=== PATIENT | male | born 1945 | race Caucasian/White ===

== ENCOUNTER 2016-09-28 16:59 | Emergency (ER) | payer OTHER ==
[2016-09-28] MEDS ORDERED: IBUPROFEN 600 MG TABLET (FP) PO ONE (17:12)
[2016-09-28 17:14] VITALS: BP 156/78; PULSE 84; TEMP 97.5; BMI 32.3
--- NOTE | 2016-09-28 17:15 | PDOC ---
Rapid Medical Evaluation Chief Complaint: Pain, Acute Time Seen by Provider: 09/28/16 17:09 Medical Evaluation: Allergies Allergy/AdvReac Type Severity Reaction Status Date / Time No Known Allergies Allergy Verified 09/28/16 17:11 09/28/16 17:12 I have performed a brief in-person evaluation of this patient. The patient presents with a chief complaint of: R flank pain, constant x 2 days , Pertinent physical exam findings:no cvat b/l I have ordered the following: cbc, cmp, ua The patient will proceed to the ED for further evaluation.
[2016-09-28 17:56] LABS: BASOPHIL 0.3 % (0-2.0); EOSINOPHIL 1.2 % (0-4.5); MCH 30.3 pg (25.7-33.7); MCHC 33.2 g/dl (32.0-35.9); MEAN CELL VOLUME 91.1 fl (80-96); MEAN PLT VOLUME 10.5 fl (7.5-11.1); NEUTROPHILS 68.6 % (42.8-82.8); PLATELET COUNT 173 K/MM3 (134-434); RDW 14.2 % (11.9-15.9); WHITE BLOOD COUNT 9.7 K/mm3 (4.0-10.0)
--- NOTE | 2016-09-28 18:03 | PDOC ---
[id number] Source: Patient Exam Limitations: No Limitations - History of Present Illness Initial Comments: 09/28/16 18:18 My Chief Complaint: Right sided flank pain intermittent since yesterday History of present illness: Patient is a 71-year-old male with history of [place] 2006 with stent placement, no hyperlipidemia, [id number] diabetes, hypertension, umbilical hernia repair with recurrent herniation. Patient reports that 2 days ago he felt mid upper abdominal pain that radiated to b/l abdomen that was constant resolved and pain was felt and right flank area and is intermittent. Patient reports the right flank pain is worse when getting up from a seated position or sitting down. Patient denies any nausea, vomiting, any shortness of breath, any diaphoresis, or any fever, diarrhea or constipation. Patient denies any belching. He denies doing any heavy lifting or any strenuous activities. Patient is responsive and pleasant making jokes in exam room. He denies any urinary symptoms. 09/28/16 18:20 09/28/16 18:24 09/28/16 18:27 09/28/16 20:02 Timing/Duration: intermittent (rt. lower quadrant pain since yesterday ) Severity: moderate Modifying Factors: improves with: immobilization Associated Symptoms: reports: denies symptoms. denies: chest pain, cough, diaphoresis, fever/chills, headaches, loss of appetite, malaise, nausea/vomiting , rash, seizure, shortness of breath, syncope, weakness <Monik Noel - Last Filed: 10/02/16 17:24> - General Chief Complaint: Pain Stated Complaint: PAIN ON SIDE Time Seen by Provider: 09/28/16 17:09 Past History <Pavithra Augustin - Last Filed: 09/28/16 20:58> - Past Medical History Cardiac Disorders: Yes (CARDIAC STENT) Diabetes: Yes HTN: Yes Hypercholesterolemia: Yes - Surgical History Cardiac Surgery: Yes (CARDIAC STENT) - Immunization History Td Vaccination: Yes (05/04/12) - Psycho/Social/Smoking Cessation Hx Anxiety: No Suicidal Ideation: No Smoking Status: Yes Smoking History: Former smoker Years of Tobacco Use: 20 Have you smoked in the past 12 months: No Number of Cigarettes Smoked Daily: 30 Information on smoking cessation initiated: No <Monik Noel - Last Filed: 10/02/16 17:24> - Past Medical History Allergies/Adverse Reactions: Allergies Allergy/AdvReac Type Severity Reaction Status Date / Time No Known Allergies Allergy Verified 09/28/16 17:11 Home Medications: Ambulatory Orders Amox-Tr/K Cl [Augmentin 875Mg Tablet] 1 tab PO BID #20 tablet 05/04/12 Aspirin [ASA] 81 mg PO DAILY 05/04/12 Losartan Potassium 25 mg PO DAILY 05/04/12 Metformin HCl [Riomet] 500 mg PO BID 05/04/12 Metoprolol Tartrate [Lopressor] 25 mg PO DAILY 05/04/12 Rosuvastatin Calcium [Crestor] 40 mg PO DAILY 05/04/12 Sulfamethoxazole/Trimethoprim [Bactrim *Ds*] 2 tab PO BID #28 tablet 05/11/12 Review of Systems - Review of Systems Able to Perform ROS?: Yes Constitutional: No: Symptoms Reported HEENTM: No: Symptoms Reported Respiratory: No: Symptoms reported Cardiac (ROS): No: Symptoms Reported ABD/GI: Yes: Other (rt. flank pain ). No: Blood Streaked Bowels, Constipated, Diarrhea, Difficulty Swallowing, Nausea, Poor Appetite, Poor Fluid Intake, Rectal Bleeding, Vomiting, Indigestion, Abdominal cramping, Tarry Stools : No: Symptoms Reported Musculoskeletal: No: Symptoms Reported Integumentary: No: Symptoms Reported Neurological: No: Symptoms reported <Monik Noel - Last Filed: 10/02/16 17:24> *Physical Exam - Vital Signs Last Vital Signs Temp Pulse Resp BP Pulse Ox 97.5 F L 84 19 156/78 96 09/28/16 17:11 09/28/16 17:11 09/28/16 17:11 09/28/16 17:11 09/28/16 17:11 <Pavithra Augustin - Last Filed: 09/28/16 20:58> - Vital Signs Last Vital Signs Temp Pulse Resp BP Pulse Ox 97.5 F L 84 19 156/78 96 09/28/16 17:11 09/28/16 17:11 09/28/16 17:11 09/28/16 17:11 09/28/16 17:11 - Physical Exam Comments: 09/28/16 18:25 General Appearance: Yes: Appropriately Dressed Respiratory/Chest: positive: Lungs Clear, Normal Breath Sounds. negative: Chest Tender, Respiratory Distress Cardiovascular: positive: Regular Rhythm, Regular Rate, S1, S2 Gastrointestinal/Abdominal: positive: Normal Bowel Sounds, Soft, Tenderness (RLQ ), Other (rt. flank pain, negative PSOAS, negative Obturator, negative McBurney) . negative: Organomegaly, Increased Bowel Sounds, Decreased BS, Distended, Guarding, Rebound, Hernia, Hepatomegaly, Spleenomegaly Musculoskeletal: negative: CVA Tenderness, CVA Tenderness (R), CVA Tenderness (L ) Integumentary: positive: Normal Color Neurologic: positive: Alert, Normal Response, Responsive <Monik Noel - Last Filed: 10/02/16 17:24> ED Treatment Course - LABORATORY CBC & Chemistry Diagram: 09/28/16 17:50 09/28/16 17:50 - ADDITIONAL ORDERS Additional order review: Laboratory Results 09/28/16 09/28/16 09/28/16 18:20 17:50 17:12 Sodium 138 Potassium 4.3 Chloride 104 Carbon Dioxide 26 Anion Gap 8 BUN 17 Creatinine 1.1 Creat Clearance w eGFR > 60 Random Glucose 107 H Calcium 9.3 Total Bilirubin 0.6 AST 22 ALT 48 Alkaline Phosphatase 76 Total Protein 7.8 Albumin 4.1 Lipase Cancelled 378 Urine Color Yellow Urine Appearance Clear Urine pH 5.0 Ur Specific [place] 1.023 Urine Protein Negative Urine Glucose (UA) Negative Urine Ketones Negative Urine Blood Negative Urine Nitrite Negative Urine Bilirubin Negative Urine Urobilinogen Negative Ur Leukocyte Esterase Negative 09/28/16 17:50 RBC 4.74 MCV 91.1 MCHC 33.2 RDW 14.2 MPV 10.5 Neutrophils % 68.6 Lymphocytes % 20.4 Monocytes % 9.5 Eosinophils % 1.2 Basophils % 0.3 - Medications Given in the ED: ED Medications Discontinued Medications Generic Name Dose Route Start Last Admin Trade Name Freq PRN Reason Stop Dose Admin Ibuprofen 600 mg 09/28/16 17:12 09/28/16 17:17 Motrin - PO 09/28/16 17:13 600 mg ONCE ONE Administration <Pavithra Augustin - Last Filed: 09/28/16 20:58> - LABORATORY CBC & Chemistry Diagram: 09/28/16 17:50 09/28/16 17:50 - ADDITIONAL ORDERS Additional order review: 09/28/16 17:50 RBC 4.74 MCV 91.1 MCHC 33.2 RDW 14.2 MPV 10.5 Neutrophils % 68.6 Lymphocytes % 20.4 Monocytes % 9.5 Eosinophils % 1.2 Basophils % 0.3 - Medications Given in the ED: ED Medications Discontinued Medications Generic Name Dose Route Start Last Admin Trade Name Dionicio PRN Reason Stop Dose Admin Ibuprofen 600 mg 09/28/16 17:12 09/28/16 17:17 Motrin - PO 09/28/16 17:13 600 mg ONCE ONE Administration <Monik Noel - Last Filed: 10/02/16 17:24> Medical Decision Making - Medical Decision Making 09/28/16 20:59 Addendum added to patient's ultrasound which showed no signs of aortic aneurysm. Patient states feeling better after receiving Motrin. Patient will be discharged home to follow-up with his primary care physician. <Pavithra Augustin - Last Filed: 09/28/16 20:58> - Medical Decision Making 09/28/16 18:23 Patient is a 71-year-old male with history of [place] 2006, no hyperlipidemia, non- insulin-dependent diabetes, hypertension, umbilical hernia repair with recurrent herniation. Patient reports that 2 days ago he felt mid upper abdominal pain that radiated to b/l abdomen that was constant resolved and pain was felt and right flank area and is intermittent. Patient reports the right flank pain is worse when getting up from a seated position or sitting down. Patient denies any nausea, vomiting, any shortness of breath, any diaphoresis, or any fever, diarrhea or constipation. Patient denies any belching. He denies doing any heavy lifting or any strenuous activities. Patient is responsive and pleasant making jokes in exam room. He denies any urinary symptoms. Rt. Flank, RLQ tenderness r/o hydronephrosis r/o AAA PLAN: ua cmp cbc with diff lipase ultrasound abdomen liver versus hepatocellular disease please correlate with liver enzymes. No gallstones are and of the pancreas likely due to overlying bowel gas. Visualized portion on the proximal and distal abdominal aorta is within normal limits in size. Abdominal aorta was not evaluated on this examination. A dedicated abdominal aorta ultrasound could be obtained if needed per Dr. Ghosh 09/28/16 18:26 09/28/16 18:27 09/28/16 19:17 Laboratory Tests 09/28/16 09/28/16 09/28/16 17:12 17:50 17:50 WBC 9.7 RBC 4.74 Hgb 14.3 Hct 43.2 MCV 91.1 MCHC 33.2 RDW 14.2 Plt Count 173 MPV 10.5 Neutrophils % 68.6 Lymphocytes % 20.4 Monocytes % 9.5 Eosinophils % 1.2 Basophils % 0.3 Sodium 138 Potassium 4.3 Chloride 104 Carbon Dioxide 26 Anion Gap 8 BUN 17 Creatinine 1.1 Creat Clearance w eGFR > 60 Random Glucose 107 H Calcium 9.3 Total Bilirubin 0.6 AST 22 ALT 48 Alkaline Phosphatase 76 Total Protein 7.8 Albumin 4.1 Lipase 378 Urine Color Yellow Urine Appearance Clear Urine pH 5.0 Ur Specific [place] 1.023 Urine Protein Negative Urine Glucose (UA) Negative Urine Ketones Negative Urine Blood Negative Urine Nitrite Negative Urine Bilirubin Negative Urine Urobilinogen Negative Ur Leukocyte Esterase Negative 09/28/16 20:12 Pt. is feeling better, decreased pain after taking ibuprofen spoke Dr. Uriel Nicole agrees that pt. should go back for aorta US case signed out to Pavithra Augustin [employer] aortic US ordered 09/28/16 20:16 10/02/16 17:23 <Monik Noel - Last Filed: 10/02/16 17:24> *DC/Admit/Observation/Transfer <Pavithra Augustin - Last Filed: 09/28/16 20:58> <Monik Noel - Last Filed: 10/02/16 17:24> Diagnosis at time of Disposition: Flank pain - Discharge Dispostion Disposition: HOME Condition at time of disposition: Improved - Referrals Referrals: Ion Castro MD [Primary Care Provider] - - Patient Instructions Printed Discharge Instructions: DI for Flank Pain Additional Instructions: Follow up with primary care provider tomorrow Return to Emergency room if any dizziness, increased pain, nausea or vomiting or headache or any new symptoms develop Patient voiced understanding of discharge instructions and all questions were answered
[2016-09-28 18:13] LABS: URINE APPEARANCE CLEAR; URINE BILIRUBIN NEGATIVE (NEGATIVE); URINE BLOOD NEGATIVE (NEGATIVE); URINE COLOR YELLOW; URINE GLUCOSE (UA) NEGATIVE (NEGATIVE); URINE KETONE NEGATIVE (NEGATIVE); URINE LEUK ESTERASE NEGATIVE (NEGATIVE); URINE NITRITE NEGATIVE (NEGATIVE); URINE PROTEIN NEGATIVE (NEGATIVE); URINE UROBILINOGEN NEGATIVE E.U./dl (0.2-1.0)
[2016-09-28 18:20] LABS: ALBUMIN 4.1 g/dl (3.4-5.0); ALK PHOS 76 U/L (45-117); ANION GAP 8 (8-16); BILIRUBIN,TOTAL 0.6 mg/dL (0.2-1.0); CALCIUM 9.3 mg/dL (8.5-10.1); CO2 26 mmol/L (21-32); CREATININE 1.1 mg/dL (0.7-1.3); GLUCOSE,RANDOM 107 mg/dL (74-106); SGOT/AST 22 U/L (15-37); SGPT/ALT 48 U/L (12-78); TOT PROT 7.8 g/dl (6.4-8.2)
== END 2016-09-28 21:07 | disposition home or self-care (01) ==
LOC: JERFT 16:59
DX: R10.31 Right lower quadrant pain (principal); E11.9 Type 2 diabetes mellitus without complications; Z79.84 Long term (current) use of oral hypoglycemic drugs; I10 Essential (primary) hypertension; Z95.5 Presence of coronary angioplasty implant and graft
CPT/HCPCS: 36415; 76700-TC; 80053; 81003; 83690; 85025; 99281-25

== ENCOUNTER 2022-12-04 12:12 | Emergency (ER) | payer OTHER ==
[2022-12-04 12:35] VITALS: BP 168/71; PULSE 70; RESP 18; TEMP 98.3; BMI 31.1
[2022-12-04 14:38] LABS: BASO % 0.2 % (0-2.0); EOS % 1.5 % (0-4.5); HEMATOCRIT 37.4 % (35.4-49); HEMOGLOBIN 12.7 GM/dL (11.7-16.9); LYMPH % 24.4 % (8-40); MCH 31.1 pg (25.7-33.7); MCHC 33.9 g/dl (32.0-35.9); MEAN CELL VOLUME 91.5 fl (80-96); MEAN PLT VOLUME 9.5 fl (7.5-11.1); NEUT % 55.9 % (42.8-82.8); PLATELET COUNT 162 10^3/uL (134-434); RBC 4.08 M/mm3 (4.00-5.60); RDW 13.7 % (11.9-15.9); WHITE BLOOD COUNT 5.4 K/mm3 (4.0-10.0)
[2022-12-04 14:40] LABS: EPI CELLS 9 /uL (0-25.1); HYALINE CASTS 0 /uL (0-3.1); URINE APPEARANCE TURBID; URINE BACTERIA 0 /uL (0-1359); URINE BILIRUBIN NEGATIVE (NEGATIVE); URINE COLOR RED; URINE GLUCOSE (UA) NEGATIVE (NEGATIVE); URINE KETONE NEGATIVE (NEGATIVE); URINE LEUK ESTERASE 1+ (NEGATIVE); URINE NITRITE NEGATIVE (NEGATIVE); URINE PROTEIN 2+ (NEGATIVE); URINE RBC 11316 /uL (0-23.9); URINE UROBILINOGEN 0.2 mg/dL (0.2-1.0); URINE WBC 50 /uL (0-25.8)
[2022-12-04 14:43] LABS: INR 1.27 (0.83-1.09); PROTHROMBIN TIME (PATIENT) 14.7 SEC (9.7-13.0)
[2022-12-04 14:46] LABS: ACTIVATED PTT 37.4 SECONDS (25.2-36.5)
[2022-12-04 15:12] LABS: POTASSIUM 4.6 mmol/L (3.5-5.1)
[2022-12-04 15:14] LABS: ALBUMIN 3.8 g/dl (3.4-5.0); BLOOD UREA NITROGEN 18.9 mg/dL (7-18); CALCIUM 9.1 mg/dL (8.5-10.1)
[2022-12-04 15:17] LABS: CREATININE 1.3 mg/dL (0.55-1.3)
[2022-12-04 15:19] LABS: BILIRUBIN,TOTAL 0.4 mg/dL (0.2-1); TOT PROT 7.2 g/dl (6.4-8.2)
== END 2022-12-04 19:27 | disposition home or self-care (01) ==
LOC: JER 12:12
DX: R31.9 Hematuria, unspecified (principal); R35.0 Frequency of micturition; R63.8 Other symptoms and signs concerning food and fluid intake
CPT/HCPCS: 36415; 74177-TC; 80053; 81003; 82550; 82553; 85025; 85610; 85730; 87086; 99285-25; Q9967

== ENCOUNTER 2022-12-26 03:48 | Day surgery (SDC) | payer OTHER ==
[2022-12-21 15:19] VITALS: BMI 31.1
[2022-12-26] MEDS ORDERED: SUCCINYLCHOLINE CHLORIDE 200 MG/10 ML SYRINGE ONE (07:05)
[2022-12-26] MEDS ORDERED: LIDOCAINE HCL/PF 2% SDV 5ML VIAL ONE (07:05)
[2022-12-26] MEDS ORDERED: MIDAZOLAM HCL 2 MG/2 ML SINGLE DOSE VIAL ONE (07:05)
[2022-12-26] MEDS ORDERED: PROPOFOL 40 ML ONE (07:05)
[2022-12-26] MEDS ORDERED: ceFAZolin SODIUM 1 GM VIAL IVPB ONE (07:39)
[2022-12-26] MEDS ORDERED: ceFAZolin SODIUM 1 GM VIAL ONE (07:54)
[2022-12-26] MEDS ORDERED: DEXAMETHASONE SOD PHOSPHATE 4 MG/1 ML VIAL ONE (07:54)
[2022-12-26] MEDS ORDERED: KETOROLAC TROMETHAMINE 30 MG/1 ML VIAL ONE (07:54)
[2022-12-26] MEDS ORDERED: ONDANSETRON 4 MG/2 ML VIAL ONE (07:54)
[2022-12-26] MEDS ORDERED: DEXTROSE 5%-0.45% SALINE 1,000 ML IV SCH (08:00)
[2022-12-26] MEDS ORDERED: oxyCODONE HCL 5 MG TABLET PO PRN (08:00)
[2022-12-26] MEDS ORDERED: ONDANSETRON 4 MG/2 ML VIAL IVPUSH PRN (08:24)
[2022-12-26] MEDS ORDERED: LACTATED RINGERS SOLUTION 1,000 ML IV SCH (08:30)
[2022-12-26 11:07] VITALS: PULSE 72; RESP 20
[2022-12-26 11:14] VITALS: BP 135/82; TEMP 97.8
== END 2022-12-26 10:45 | disposition home or self-care (01) ==
LOC: JASU-SURG 03:48
PROVIDERS: ATTEND Urology
PROC: 0TBB8ZZ Excision of Bladder, Via Natural or Artificial Opening Endoscopic (ICD-10-PCS; principal; 2022-12-26 07:30)
DX: C67.9 Malignant neoplasm of bladder, unspecified (principal); N21.0 Calculus in bladder
CPT/HCPCS: 36415; 82360; 82962; 88300-TC; 88307-TC; 94760